=== PATIENT | female | born 1940 | race Caucasian/White ===

== ENCOUNTER → 2016-06-21 10:03 | Outpatient (CLI) | payer MEDICARE ==
[~2016-06-21] VITALS: Ht 165.1 cm; Wt 63.6 kg
[~2016-06-21 10:03] MED LIST: COLACE100 MG PO; COMBIVENT RESPIM4 GM INH; COUMADIN5 MG PO; CYTOTEC200 MCG PO; ELIQUIS2.5 MG PO; LIBRIUM 10 MG C10 MG PO; NUCYNTA75 MG PO; PERCOCET 5/3251 TA1 PO; PROLIA INJ 660 MG/M1 IJ; PROTONIX40 MG PO; RYBIX ODT50 MG PO; SENOKOT-S TABLE1 TAB PO; SOMA350 MG PO; ULTRAM50 MG PO; VIMOVO 375-201 EACH PO; VOLTAREN75 MG PO
[2016-06-21 10:51] VITALS: BP 120/75; Ht 165.1 cm; Wt 63.6 kg
--- NOTE | 2016-06-21 10:59 | NUR ---
1040 PATIENT GIVEN PROLIA INJECTION IN LEFT UPPER ARM WITHOUT PROBLEMS AT THE SITE NOTED. 1055 PATIENT DISCHARGED HOME WITH INSTRUCTIONS TO CALL IF ANY PROBLEMS AND RETURN IN 6 MONTHS
== END | disposition home or self-care (01) ==
LOC: D.OPS 10:03
DX: M81.0 Age-related osteoporosis without current pathological fracture (principal)

== ENCOUNTER → 2016-09-14 14:14 | Outpatient (CLI) | payer MEDICARE ==
[2016-06-21 10:51] VITALS: BMI 23.3
== END | disposition home or self-care (01) ==
LOC: D.MRI 14:14
DX: M54.5 Low back pain (principal)

== ENCOUNTER 2016-12-20 09:16 | Outpatient (CLI) | payer MEDICARE ==
[~2016-12-20] VITALS: Ht 165.1 cm; Wt 61.4 kg
[2016-12-20 09:57] VITALS: BP 113/74; Ht 165.1 cm; Wt 61.4 kg
== END 2016-12-20 10:05 | disposition home or self-care (01) ==
LOC: D.OPS 09:16
DX: M81.0 Age-related osteoporosis without current pathological fracture (principal)

== ENCOUNTER 2017-08-29 10:05 | Outpatient (CLI) | payer MEDICARE ==
[~2017-08-29] VITALS: Ht 165.1 cm; Wt 63.6 kg
[2017-08-29 10:32] VITALS: BP 111/65; Ht 165.1 cm; Wt 63.6 kg
== END 2017-08-29 10:51 ==
LOC: D.OPS 10:05
DX: M81.0 Age-related osteoporosis without current pathological fracture (principal)

== ENCOUNTER 2018-07-24 13:12 | Outpatient (CLI) | payer MEDICARE ==
[~2018-07-24] VITALS: Ht 165.1 cm; Wt 59.1 kg
[2018-07-24 13:31] VITALS: BP 119/64; Ht 165.1 cm; Wt 59.1 kg
== END 2018-07-24 13:50 | disposition home or self-care (01) ==
LOC: D.OPS 13:12
PROVIDERS: ATTEND Family Medicine
DX: M81.0 Age-related osteoporosis without current pathological fracture (principal)

== ENCOUNTER 2019-03-19 11:57 | Outpatient (CLI) | payer MEDICARE ==
[~2019-03-19] VITALS: Ht 165.1 cm; Wt 61.4 kg
[2019-03-19 12:20] VITALS: BP 125/65; Ht 165.1 cm; Wt 61.4 kg
== END 2019-03-19 12:32 | disposition home or self-care (01) ==
LOC: D.OPS 11:57
PROVIDERS: ATTEND Emergency Medicine
DX: M81.0 Age-related osteoporosis without current pathological fracture (principal)